=== PATIENT | female | born 1955 | race African-American/Black ===

== ENCOUNTER 2017-06-15 09:50 | Outpatient (CLI) | payer BC ==
[2017-06-15 10:24] LABS: Alanine Aminotransferase 30 units/L (7-56); Albumin 4.6 g/dL (3.9-5); Albumin/Globulin Ratio 1.8 %; Alkaline Phosphatase 70 units/L (35-129); Anion Gap 18 mmol/L; BUN/Creatinine Ratio 40; Blood Urea Nitrogen 20 mg/dL (7-17); Calcium 9.8 mg/dL (8.4-10.2); Carbon Dioxide 25 mmol/L (22-30); Chloride 105.4 mmol/L (98-107); Glucose 103 mg/dL (65-100); Potassium 4.8 mmol/L (3.6-5.0); Sodium 144 mmol/L (137-145); Total Protein 7.2 g/dL (6.3-8.2)
== END 2017-06-15 09:51 | disposition home or self-care (01) ==
LOC: LAB 09:50
PROVIDERS: ATTEND Nurse Practitioner
DX: R74.8 Abnormal levels of other serum enzymes (principal)
CPT/HCPCS: 36415; 80053

== ENCOUNTER 2017-07-05 06:45 | Outpatient (CLI) | payer BC ==
--- NOTE | 2017-07-06 15:34 | PET Report ---
PET/CT:07/05/17 06:45:00 CLINICAL: Breast cancer restaging. RADIOPHARMACEUTICAL: 13.21mCi F18-FDG. COMPARISON: 08/17/16 PET/CT TECHNIQUE- Following intravenous injection of F-18 FDG and an approximately 60 minute uptake period, CT and PET images from the mid skull to the upper thighs were acquired with the patient in the fasted state. No contrast was administered. The CT protocol used for this PET CT study is designed for attenuation correction and anatomic localization of PET abnormalities. This brand communications manager CT is not desired to produce and cannot replace, rizld-pe-lzc-art diagnostic CT scans with specific imaging protocols for different body parts and indications. Plasma glucose at the time of this test: 101g/dl. The standardized uptake values (SUV) are normalized to patient body weight and indicate the highest activity concentration (SUV max) in a given disease site. FINDINGS: Brain--Physiologic FDG uptake in the visualized regions of the brain. Neck--Physiologic FDG uptake . Chest--Physiologic FDG uptake in mediastinal blood pool and myocardium. Lungs--No abnormal uptake. No pulmonary nodule or mass. Pleura/pericardium--No abnormal uptake. Thoracic nodes--No abnormal uptake. Hepatobiliary--No abnormal uptake. Liver background SUV mean, as a reference for comparing FDG studies, is 2.75 compared to 3.0 on the last exam. No liver mass. Spleen--No abnormal uptake. Pancreas--No abnormal uptake. Adrenal Glands--No abnormal uptake. Kidneys/Ureters/Bladder--No abnormal uptake. Abdominopelvic Nodes--No abnormal uptake. Bowel/Peritoneum/Mesentery--No abnormal uptake. Physiologic uptake throughout the colon. Pelvic organs--No abnormal uptake. Bones/Soft Tissues--No abnormal uptake. No bone lesions. Other findings: Status post bilateral mastectomy. A right Gatumi-m-Ubve tip is in the right atrium. IMPRESSION- Negative study with no evidence of disease recurrence or metastasis.
== END 2017-07-05 06:46 | disposition home or self-care (01) ==
LOC: PET 06:45
PROVIDERS: ATTEND Internal Medicine Hematology & Oncology
DX: C50.412 Malignant neoplasm of upper-outer quadrant of left female breast (principal); R25.2 Cramp and spasm; E11.9 Type 2 diabetes mellitus without complications; Z90.13 Acquired absence of bilateral breasts and nipples
CPT/HCPCS: 78815; 82962; A9552

== ENCOUNTER 2017-07-19 10:58 | Day surgery (SDC) | payer BC ==
--- NOTE | 2017-07-19 12:30 | Anesthesia Day of Surgery ---
Anesthesia Day of Surgery - Day of Surgery Patient Examined: Yes Patient H&P Reviewed: Yes Patient is NPO: Yes
--- NOTE | 2017-07-19 12:30 | Anesthesia Consultation ---
Anesthesia Consult and Med Hx Date of service: 07/19/17 - Airway Anesthetic Teeth Evaluation: Good ROM Head & Neck: Adequate Mental/Hyoid Distance: Adequate Mallampati Class: Class II Intubation Access Assessment: Good - Pulmonary Exam CTA: Yes - Cardiac Exam Cardiac Exam: No Murmur - Pre-Operative Health Status ASA Pre-Surgery Classification: ASA2 Proposed Anesthetic Plan: MAC - Pulmonary Hx Smoking: No Hx Asthma: Yes (childhood) COPD: No Hx Pneumonia: No Hx Sleep Apnea: No - Cardiovascular System Hx Heart Attack/AMI: No - Central Nervous System Hx Psychiatric Problems: No - Endocrine Hx End Stage Renal Disease: No Hx Non-Insulin Dependent Diabetes: Yes - Other Systems Hx Cancer: Yes
[2017-07-19] MEDS ORDERED: SUBLIMAZE ONE (12:58)
[2017-07-19] MEDS ORDERED: DIPRIVAN 10 MG/ML IV ONE (12:58)
[2017-07-19] MEDS ORDERED: VERSED IV NR (13:00)
[2017-07-19] MEDS ORDERED: NACL 0.9% 1000 ML 1,000 ML IV SCH (13:00)
[2017-07-19] MEDS ORDERED: ANCEF/STERILE WATER 2 GM/20 ML IV NR (13:00)
[2017-07-19] MEDS ORDERED: PEPCID PO NR (13:00)
[2017-07-19] MEDS ORDERED: MARCAINE 0.25% INFILTRATI ONE ×2 (13:25→13:26)
[2017-07-19] MEDS ORDERED: NACL 0.9% IR ONE (13:26)
[2017-07-19] MEDS ORDERED: XYLOCAINE 1% 20 mL INFILTRATI ONE (13:35)
[2017-07-19] MEDS ORDERED: XYLOCAINE MPF 2% ONE (13:39)
--- NOTE | 2017-07-19 13:46 | Discharge Summary ---
Short Stay Discharge Plan Activity: no restrictions Diet: regular Wound: open to air, other (ice pack off and on today; may shower in 24 hours) Follow up with: JACE DONALD MD [Primary Care Provider] - 7 Days NIALL DE LEON MD [Staff Physician] - 7 Days
--- NOTE | 2017-07-19 13:47 | Post Operative Note ---
Pre-op diagnosis: malfunctioning vascular port Post-op diagnosis: same Findings: tip removed intact Procedure: removal of vascular access port Anesthesia: MAC Surgeon: NIALL DE LEON Estimated blood loss: none Pathology: none Condition: stable Disposition: PACU
--- NOTE | 2017-07-19 14:28 | Operative Report ---
PREOPERATIVE DIAGNOSIS: Malfunctioning port, vascular access port no longer required. POSTOPERATIVE DIAGNOSIS: Malfunctioning port, vascular access port no longer required, but PROCEDURE: Removal of port. TYPE OF ANESTHESIA: Local MAC. SURGEON: Kaylin Valentine MD HUMANE OFFICER: None. ESTIMATED BLOOD LOSS: None. INDICATIONS: This is a 61-year-old woman with history of left breast cancer who has had an indwelling port she no longer requires, thus requests removal of the port. DESCRIPTION OF PROCEDURE: The patient was brought to operating room, laid supine on the table. After adequate IV sedation was obtained, the right neck and chest wall were prepped and draped in the usual fashion. Initially 1:1 mixture of 0.25% Marcaine and 1% lidocaine was infiltrated in field block anesthesia fashion overlying the port on the right chest wall. The previous incision was incised and the catheter was dissected free from the surrounding attachments and the catheter was pulled out gently and removed from the vein with intact tip. Pressure was applied at the neck. Next, the port was freed from its attachments in the pocket on the chest wall using sharp dissection using a 15 blade. Once the dome was freed, it was removed. Hemostasis was ascertained in the wound and then the subcutaneous tissue was reapproximated using 3-0 Vicryl suture. Skin was reapproximated using 4-0 Monocryl in a running subcuticular fashion. The wound was dressed with skin glue. The patient tolerated the procedure. There were no immediate complications. All counts were reported as correct. JOB# [id number] MELY/SJ
[2017-07-19 15:05] VITALS: BP 156/88
--- NOTE | 2017-07-19 15:30 | Post Anesthesia Evaluation ---
- Post Anesthesia Evaluation Patient Participated: Yes Airway Patent: Yes Stable Respiratory Function: Yes Nausea/Vomiting: No Temp > 96.8F: Yes Pain Manageable: Yes Adequeate Hydration: Yes Anesthesia Complications: No Block Receding Appropriately: Not Applicable Patient on Ventilator: No
== END 2017-07-19 15:00 | disposition home or self-care (01) ==
LOC: OR 10:58
PROVIDERS: ATTEND Surgery
DX: Z45.2 Encounter for adjustment and management of vascular access device (principal); J45.909 Unspecified asthma, uncomplicated; E11.9 Type 2 diabetes mellitus without complications; Z85.3 Personal history of malignant neoplasm of breast; Z92.21 Personal history of antineoplastic chemotherapy; Z90.710 Acquired absence of both cervix and uterus; Z79.899 Other long term (current) drug therapy; Z98.51 Tubal ligation status; Z90.12 Acquired absence of left breast and nipple; Z98.890 Other specified postprocedural states; Z79.82 Long term (current) use of aspirin; Z79.84 Long term (current) use of oral hypoglycemic drugs; Z88.8 Allergy status to other drugs, medicaments and biological substances
CPT/HCPCS: 36415; 36590; 80048; 82962; 85025; J0690; J2250; J2704; J3010; J7030

== ENCOUNTER 2017-08-06 11:13 | Day surgery (SDC) | payer BC | END 2017-08-06 11:14 | disposition home or self-care (01) | LOC: CATHLABREC 11:13 | PROVIDERS: ATTEND Internal Medicine | DX: J39.2 Other diseases of pharynx (principal) | CPT/HCPCS: 87400 ==

== ENCOUNTER 2018-01-31 08:15 | Outpatient (CLI) | payer BC ==
[2018-01-31 08:35] LABS: Hematocrit 45.3 % (30.3-42.9); Hemoglobin 14.8 gm/dl (10.1-14.3); Mean Corpuscular HGB Conc 33 % (30-34); Mean Corpuscular Hemoglobin 30 pg (28-32); Mean Corpuscular Volume 90 fl (79-97); Platelet Count 284 K/mm3 (140-440); Red Blood Count 5.03 M/mm3 (3.65-5.03); Red Cell Distribution Width 13.7 % (13.2-15.2)
[2018-01-31 09:01] LABS: Alanine Aminotransferase 39 units/L (7-56); Albumin 4.6 g/dL (3.9-5); BUN/Creatinine Ratio 30; Blood Urea Nitrogen 15 mg/dL (7-17); Calcium 9.6 mg/dL (8.4-10.2); Hemolysis Index 6
== END 2018-01-31 08:16 | disposition home or self-care (01) ==
LOC: LAB 08:15
PROVIDERS: ATTEND Nurse Practitioner
DX: C50.412 Malignant neoplasm of upper-outer quadrant of left female breast (principal); E11.9 Type 2 diabetes mellitus without complications; J44.9 Chronic obstructive pulmonary disease, unspecified; Z88.8 Allergy status to other drugs, medicaments and biological substances
CPT/HCPCS: 36415; 80053; 85027; 86300

== ENCOUNTER 2018-04-15 13:56 | Outpatient (CLI) | payer BC ==
[2018-04-15 14:50] LABS: Basophils # (Auto) 0.1 K/mm3 (0.0-0.1); Basophils % (Auto) 1.4 % (0.0-1.8); Eosinophils # (Auto) 0.1 K/mm3 (0.0-0.4); Hematocrit 45.7 % (30.3-42.9); Hemoglobin 14.8 gm/dl (10.1-14.3); Lymphocytes # (Auto) 1.8 K/mm3 (1.2-5.4); Lymphocytes % (Auto) 24.2 % (13.4-35.0); Mean Corpuscular HGB Conc 33 % (30-34); Mean Corpuscular Hemoglobin 30 pg (28-32); Mean Corpuscular Volume 91 fl (79-97); Monocytes # (Auto) 0.4 K/mm3 (0.0-0.8); Platelet Count 216 K/mm3 (140-440); Red Blood Count 5.02 M/mm3 (3.65-5.03)
[2018-04-15 15:06] LABS: Alanine Aminotransferase 52 units/L (7-56); Albumin 4.7 g/dL (3.9-5); BUN/Creatinine Ratio 20; Blood Urea Nitrogen 18 mg/dL (7-17); Calcium 9.7 mg/dL (8.4-10.2); Hemolysis Index 26
== END 2018-04-15 13:57 | disposition home or self-care (01) ==
LOC: LAB 13:56
PROVIDERS: ATTEND Internal Medicine Hematology & Oncology
DX: C50.412 Malignant neoplasm of upper-outer quadrant of left female breast (principal); E11.9 Type 2 diabetes mellitus without complications; J45.909 Unspecified asthma, uncomplicated; Z90.710 Acquired absence of both cervix and uterus; Z90.721 Acquired absence of ovaries, unilateral; Z88.8 Allergy status to other drugs, medicaments and biological substances
CPT/HCPCS: 36415; 80053; 83036; 85025; 86300

== ENCOUNTER 2018-08-22 12:43 | Outpatient (CLI) | payer BC ==
[2018-08-22 13:12] LABS: Hematocrit 42.9 % (30.3-42.9); Hemoglobin 13.9 gm/dl (10.1-14.3); Mean Corpuscular HGB Conc 32 % (30-34); Mean Corpuscular Volume 90 fl (79-97); Platelet Count 311 K/mm3 (140-440); Red Blood Count 4.79 M/mm3 (3.65-5.03); Red Cell Distribution Width 14.2 % (13.2-15.2)
[2018-08-22 13:37] LABS: Alanine Aminotransferase 53 units/L (7-56); Albumin 4.4 g/dL (3.9-5); BUN/Creatinine Ratio 30; Blood Urea Nitrogen 15 mg/dL (7-17); Calcium 9.6 mg/dL (8.4-10.2); Hemolysis Index 8
== END 2018-08-22 12:44 | disposition home or self-care (01) ==
LOC: LAB 12:43
PROVIDERS: ATTEND Internal Medicine Hematology & Oncology
DX: C50.912 Malignant neoplasm of unspecified site of left female breast (principal); E11.9 Type 2 diabetes mellitus without complications; J45.909 Unspecified asthma, uncomplicated; Z90.12 Acquired absence of left breast and nipple; Z90.710 Acquired absence of both cervix and uterus; Z90.721 Acquired absence of ovaries, unilateral
CPT/HCPCS: 36415; 80053; 85027; 86300

== ENCOUNTER 2018-11-13 09:11 | Day surgery (SDC) | payer BC ==
[~2018-11-13 09:11] MED LIST: DIPRIVAN 10 MG/ML IV ONE; NACL 0.9% 1000 ML 1,000 ML IV SCH
--- NOTE | 2018-11-13 12:05 | Short Stay Summary ---
Short Stay Documentation Date of service: 11/13/18 - History H&P: obtained from office - Allergies and Medications Current Medications: Allergies diatrizoate sodium [From Hypaque] Allergy (Mild, Verified 07/17/17 14:58) Hives diatrizoate sodium [From Hypaque] Allergy (Verified 07/17/17 14:58) Hives/VOMITING Home Medications Medication Instructions Recorded Confirmed Last Taken Type Ascorbic Acid [Vitamin C] 1,000 mg PO QDAY 12/10/15 11/13/18 11/11/18 History metFORMIN [Glucophage] 500 mg PO BID 12/10/15 11/13/18 11/11/18 History Anastrozole (Nf) [Arimidex (Nf)] 1 mg PO DAILY 05/02/17 11/13/18 11/11/18 History Aspirin EC [Aspirin Enteric Coated 81 mg PO QDAY 05/02/17 11/13/18 11/11/18 History TAB] Calcium Carbonate [Calcium] 600 mg PO QDAY 06/29/17 11/12/18 11/12/18 History Glucosamine & Chondroitin Cap 1,200 mg PO BID 06/29/17 11/12/18 11/12/18 History Multivitamin [Multiple Vitamins] 1 each PO QDAY 06/29/17 11/12/18 11/12/18 History Turmeric 500 mg PO BID 06/29/17 11/13/18 11/11/18 History Active Medications Sodium Chloride (Nacl 0.9% 1000 Ml) 1,000 mls @ 50 mls/hr IV DIRECT PA Last Admin: 11/13/18 09:57 Dose: 50 mls/hr Documented by: - Brief post op/procedure progress note Date of procedure: 11/13/18 Pre-op diagnosis: Screening Post-op diagnosis: other (Normal colon, ext hemorrhoids) Procedure: Colonoscopy Anesthesia: MAC Findings: 1. Normal colon 2. External hemorrhoids noted on perianal exam. Surgeon: PRASHANT MEDRANO Estimated blood loss: none Pathology: none Condition: stable - Disposition Condition at discharge: Good Disposition: DC-01 TO HOME OR SELFCARE Short Stay Discharge Plan Diet: regular Follow up with: JACE DONALD MD [Primary Care Provider] - 7 Days
[2018-11-13 12:42] VITALS: BP 119/63
--- NOTE | 2018-11-13 13:42 | Operative Report ---
PROCEDURE: Colonoscopy. PREOPERATIVE DIAGNOSIS: Screening. POSTOPERATIVE DIAGNOSES: Normal colon and external hemorrhoids. SEDATION: MAC by Anesthesia. HISTORY: The patient is a 63-year-old woman who presents for a screening colonoscopy. Procedure, indications, risks, and benefits were explained then consent was obtained. The patient was placed in left lateral decubitus position and sedated. Movatui video colonoscope was passed through the rectum after digital examination and passed with minimal difficulty to the cecum, which was identified by the ileocecal valve and the appendiceal orifice. Scope was then gradually withdrawn with close inspection of the mucosa. FINDINGS: 1. Visualized colonic mucosa is normal appearing with no evidence of mass, lesions, vascular lesions or inflammation. 2. Perianal exam revealed moderate external hemorrhoids. The patient tolerated the procedure well without immediate complication. IMPRESSION: Normal colonoscopy with external hemorrhoids. PLAN: Repeat colonoscopy in 10 years. JOB# [id number] HRC/NTS
== END 2018-11-13 09:12 | disposition home or self-care (01) ==
LOC: GIO 09:11
PROVIDERS: ATTEND Internal Medicine Gastroenterology
DX: Z12.11 Encounter for screening for malignant neoplasm of colon (principal); K64.8 Other hemorrhoids; E11.9 Type 2 diabetes mellitus without complications; J45.909 Unspecified asthma, uncomplicated; Z90.13 Acquired absence of bilateral breasts and nipples; Z98.51 Tubal ligation status; Z90.710 Acquired absence of both cervix and uterus; Z98.890 Other specified postprocedural states; Z90.721 Acquired absence of ovaries, unilateral; Z82.61 Family history of arthritis; Z84.1 Family history of disorders of kidney and ureter; Z79.84 Long term (current) use of oral hypoglycemic drugs; Z79.82 Long term (current) use of aspirin; Z79.899 Other long term (current) drug therapy; Z85.3 Personal history of malignant neoplasm of breast; Z80.8 Family history of malignant neoplasm of other organs or systems; Z82.49 Family history of ischemic heart disease and other diseases of the circulatory system; Z88.8 Allergy status to other drugs, medicaments and biological substances
CPT/HCPCS: 45378; 82962; J2704; J7030

== ENCOUNTER 2018-12-13 08:37 | Outpatient (CLI) | payer BC ==
[2018-12-13 09:06] LABS: Hematocrit 43.5 % (30.3-42.9); Hemoglobin 14.4 gm/dl (10.1-14.3); Mean Corpuscular HGB Conc 33 % (30-34); Mean Corpuscular Volume 90 fl (79-97); Platelet Count 271 K/mm3 (140-440); Red Blood Count 4.85 M/mm3 (3.65-5.03); Red Cell Distribution Width 13.4 % (13.2-15.2)
[2018-12-13 09:31] LABS: Alanine Aminotransferase 188 units/L (7-56); Albumin 4.4 g/dL (3.9-5); BUN/Creatinine Ratio 36; Blood Urea Nitrogen 18 mg/dL (7-17); Calcium 9.2 mg/dL (8.4-10.2); Chol/HDL Ratio 2.36 %; HDL Cholesterol 47 mg/dL (40-59); Hemolysis Index 12; LDL Cholesterol,Direct 58 mg/dL (50-130)
[2018-12-17 13:06] LABS: Vitamin D, 25-OH, D2 <4 ng/mL
== END 2018-12-13 08:38 | disposition home or self-care (01) ==
LOC: LAB 08:37
PROVIDERS: ATTEND Internal Medicine
DX: E11.9 Type 2 diabetes mellitus without complications (principal); J45.909 Unspecified asthma, uncomplicated; Z90.710 Acquired absence of both cervix and uterus
CPT/HCPCS: 36415; 80053; 80061; 82306; 83036; 84436; 84443; 85027; 86300

== ENCOUNTER 2019-02-27 09:43 | Outpatient (CLI) | payer BC ==
[2019-02-27 10:01] LABS: Hematocrit 46.2 % (30.3-42.9); Hemoglobin 15.3 gm/dl (10.1-14.3); Mean Corpuscular HGB Conc 33 % (30-34); Mean Corpuscular Volume 90 fl (79-97); Platelet Count 283 K/mm3 (140-440); Red Blood Count 5.14 M/mm3 (3.65-5.03); Red Cell Distribution Width 14.1 % (13.2-15.2)
[2019-02-27 10:29] LABS: Alanine Aminotransferase 55 units/L (7-56); Albumin 4.4 g/dL (3.9-5); BUN/Creatinine Ratio 34; Blood Urea Nitrogen 17 mg/dL (7-17); Calcium 10.1 mg/dL (8.4-10.2); Hemolysis Index 31
[2019-02-27 10:48] LABS: Bilirubin,Direct < 0.2 mg/dL (0-0.2)
== END 2019-02-27 09:44 | disposition home or self-care (01) ==
LOC: LAB 09:43
PROVIDERS: ATTEND Internal Medicine Hematology & Oncology
DX: C50.919 Malignant neoplasm of unspecified site of unspecified female breast (principal); J45.909 Unspecified asthma, uncomplicated; E11.9 Type 2 diabetes mellitus without complications; Z90.710 Acquired absence of both cervix and uterus
CPT/HCPCS: 36415; 80053; 80076; 83036; 85027; 86300

== ENCOUNTER 2019-05-26 09:28 | Outpatient (CLI) | payer BC ==
[2019-05-26 10:00] LABS: Hematocrit 45.3 % (30.3-42.9); Hemoglobin 14.9 gm/dl (10.1-14.3); Mean Corpuscular HGB Conc 33 % (30-34); Mean Corpuscular Volume 90 fl (79-97); Platelet Count 294 K/mm3 (140-440); Red Blood Count 5.05 M/mm3 (3.65-5.03)
[2019-05-26 10:20] LABS: Alanine Aminotransferase 97 units/L (7-56); Albumin 4.7 g/dL (3.9-5); BUN/Creatinine Ratio 22; Blood Urea Nitrogen 13 mg/dL (7-17); Hemolysis Index 6
[2019-05-26 10:25] LABS: Bilirubin,Direct < 0.2 mg/dL (0-0.2)
== END 2019-05-26 09:29 | disposition home or self-care (01) ==
LOC: LAB 09:28
PROVIDERS: ATTEND Internal Medicine Hematology & Oncology
DX: E11.9 Type 2 diabetes mellitus without complications (principal); Z85.3 Personal history of malignant neoplasm of breast
CPT/HCPCS: 36415; 80053; 80076; 83036; 85027; 86300

== ENCOUNTER 2019-09-04 08:22 | Outpatient (CLI) | payer BC ==
[2019-09-04 08:39] LABS: Hematocrit 45.8 % (30.3-42.9); Hemoglobin 14.9 gm/dl (10.1-14.3); Mean Corpuscular HGB Conc 33 % (30-34); Mean Corpuscular Volume 89 fl (79-97); Platelet Count 298 K/mm3 (140-440); Red Blood Count 5.14 M/mm3 (3.65-5.03); Red Cell Distribution Width 14.1 % (13.2-15.2)
[2019-09-04 09:03] LABS: Alanine Aminotransferase 43 units/L (7-56); Albumin 4.6 g/dL (3.9-5); BUN/Creatinine Ratio 28; Blood Urea Nitrogen 14 mg/dL (7-17); Calcium 9.7 mg/dL (8.4-10.2); Hemolysis Index 83
== END 2019-09-04 08:23 | disposition home or self-care (01) ==
LOC: LAB 08:22
PROVIDERS: ATTEND Internal Medicine Hematology & Oncology
DX: C50.919 Malignant neoplasm of unspecified site of unspecified female breast (principal)
CPT/HCPCS: 36415; 80053; 85027; 86300